=== PATIENT | male | born 1940 | race Caucasian/White ===

== ENCOUNTER 2016-12-08 11:35 | Emergency (ER) | payer MEDICARE, OTHER ==
[~2016-12-08] VITALS: Ht 162.6 cm; Wt 68.5 kg
[2016-12-08] VITALS (7 sets, daily range): BP systolic 140–148; BP diastolic 58–60; PULSE 63–97; RESP 16–18; TEMP 97.9–98.3; O2SAT 95–100
[~2016-12-08 11:35] MED LIST: 1-ME1LIQ PO; ADVAI500I PO; ASPI81TA82 PO; ATEN-100 PO; ATOR40TA PO; EZET10 PO; FLUO-1 PO; LIAL1.2T PO; NITR0.4S SL; PROT40TA PO
[2016-12-08] MEDS ORDERED: ADVA500A INH (11:57)
[2016-12-08] MEDS ORDERED: IPRAAER INH (11:57)
[2016-12-08] MEDS ORDERED: LIAL1.2T PO (11:57)
[2016-12-08] MEDS ORDERED: ASPI-516 CHEW (11:57)
[2016-12-08] MEDS ORDERED: LISI10TA3 PO (11:57)
[2016-12-08] MEDS ORDERED: ATOR20TA15 PO (11:57)
[2016-12-08] MEDS ORDERED: [UNRECOGNIZED DRUG - CODE] PO (11:57)
[2016-12-08] MEDS ORDERED: EZET10 PO (11:57)
[2016-12-08] MEDS ORDERED: FLUO40CA PO (11:57)
--- NOTE | 2016-12-08 12:10 | PD ---
HPI Chief Complaint: Foreign Body Time Seen by Provider: 11:57 Travel History International Travel<30 days: No Contact w/Intl Traveler<30days: No Traveled to known affect area: No History of Present Illness HPI patient is a 68-year-old male having indigestion symptoms for the past few days but went out for a steak dinner last night with his and feels as though a piece of steak immediately got stuck in his throat was unable to tolerate any by mouth since then. Patient states anything he eats gets stuck in his throat and then immediately comes right back up. He states that he was not able to tolerate any further ingestion of the steak last night, he states he tried some cranberry juice this morning and it came right back up and this prompted him to come in and be seen. He states this is never happened before. States he used to get a colonoscopy and endoscopy every 5 years but hasn't seen his GI doctor in 6 years because he moved to [place]. Denies any chest pain shortness of breath abdominal pain. Denies any nausea. Symptoms are moderate, constant, context as above and associated signs symptoms as above. PFSH Past Medical History Depression: Yes Cardiovascular Problems: Yes (HTN, CHOL) High Cholesterol: Yes COPD: Yes Coronary Artery Disease: Yes (STENTS X2) Diabetes: No Diminished Hearing: No Diverticulitis: Yes Gastrointestinal Disorders: Yes (COLITIS) GERD: Yes Hypertension: Yes Immunizations Current: Yes Ulcer: Yes (ULCERATIVE COLITIS) Past Surgical History Coronary Stent: Yes Other Surgery: Yes (ANGIOPLASTY BI LAT LEGS) Social History Alcohol Use: Yes (RARE) Tobacco Use: No Substance Use: No Allergies-Medications (Allergen,Severity, Reaction): Coded Allergies: Sulfa (Sulfonamide Antibiotics) (Unverified Allergy, Intermediate, "DOESN' T REMEMBER", 12/08/16) Reported Meds & Prescriptions Reported Meds & Active Scripts Active Reported Aspirin 81 Mg Chew 81 Mg CHEW DAILY Advair Diskus Inh (Fluticasone-Salmeterol Inh) 500-50 Mcg/Blist Aer 1 Puff INH BID Rinse mouth after use. Lisinopril 10 Mg Tab 10 Mg PO DAILY Fluoxetine (Fluoxetine HCl) 40 Mg Cap 40 Cap PO DAILY Combivent Respimat Inh (Ipratropium-Albuterol Inh) 20-100 Residential/Act Aero 1 Puff INH QID Eprosartan (Eprosartan Mesylate) 600 Mg Tab 1 Tab PO DAILY Atorvastatin (Atorvastatin Calcium) 20 Mg Tab 20 Mg PO HS Zetia (Ezetimibe) 10 Mg Tab 10 Mg PO DAILY Lialda (Mesalamine) 1.2 Gm Tabdr 1.2 Gm PO DAILY Take with a meal. Review of Systems Except as stated in HPI: all other systems reviewed are Neg Physical Exam Narrative GENERAL: Well-developed well-nourished, elderly male in no apparent distress. He is tolerating his own secretions. He was given a cup of water to drink and this was regurgitated.. SKIN: Focused skin assessment warm/dry. HEAD: Atraumatic. Normocephalic. EYES: Pupils equal and round. No scleral icterus. No injection or drainage. ENT: No nasal bleeding or discharge. Mucous membranes pink and moist. NECK: Trachea midline. No JVD. CARDIOVASCULAR: Regular rate and rhythm. No murmur appreciated. RESPIRATORY: No accessory muscle use. Clear to auscultation. Breath sounds equal bilaterally. GASTROINTESTINAL: Abdomen soft, non-tender, nondistended. Hepatic and splenic margins not palpable. MUSCULOSKELETAL: No obvious deformities. No clubbing. No cyanosis. No edema. NEUROLOGICAL: Awake and alert. No obvious cranial nerve deficits. Motor grossly within normal limits. Normal speech. PSYCHIATRIC: Appropriate mood and affect; insight and judgment normal. Data Data Last Documented VS Vital Signs Date Time Temp Pulse Resp B/P (MAP) Pulse Ox O2 Delivery O2 Flow Rate FiO2 12/08/16 18:15 80 16 148/58 (88) 100 12/08/16 17:30 98.3 Room Air Orders Orders Basic Metabolic Panel (Bmp) (12/08/16 12:05) Complete Blood Count With Diff (12/08/16 12:05) Iv Access Insert/Monitor (12/08/16 12:05) Ecg Monitoring (12/08/16 12:05) Oximetry (12/08/16 12:05) Sodium Chloride 0.9% Flush (Ns Flush) (12/08/16 12:15) Dicyclomine Inj (Bentyl Inj) (12/08/16 12:15) Glucagon Inj (Glucagon Inj) (12/08/16 12:15) Ondansetron Inj (Zofran Inj) (12/08/16 12:15) Glucagon Inj (Glucagon Inj) (12/08/16 13:00) Diet Npo Except Meds (12/08/16 Lunch) Consent (12/08/16 13:39) Electrocardiogram (12/08/16 ) Lactated Ringer's 1000 Ml Inj (Lr 1000 M (12/08/16 15:30) Sodium Chlorid 0.9% 500 Ml Inj (Ns 500 M (12/08/16 15:30) Metoprolol Tartrate (Lopressor) (12/08/16 15:30) Povidone Iod 5% Antisepsis Kit (Betadine (12/08/16 15:30) Chlorhexidine 2% Cloth (Chlorhexidine 2% (12/08/16 15:30) Insulin Human Regular Inj (Novolin R Inj (12/08/16 15:30) Panendo (12/08/16 ) Fentanyl Inj (Fentanyl Inj) (12/08/16 17:02) Propofol 200 Mg/20 Ml Inj (Diprivan 200 (12/08/16 16:45) General/Pacu (12/08/16 ) Class Iii Pacu Ea 30 Min (12/08/16 ) Secondary Rec Up To 2 Hrs (12/08/16 ) Labs Laboratory Tests Test 12/08/16 12:17 White Blood Count 5.6 TH/MM3 Red Blood Count 5.05 MIL/MM3 Hemoglobin 14.4 GM/DL Hematocrit 43.5 % Mean Corpuscular Volume 86.1 FL Mean Corpuscular Hemoglobin 28.6 PG Mean Corpuscular Hemoglobin Concent 33.2 % Red Cell Distribution Width 12.8 % Platelet Count 379 TH/MM3 Mean Platelet Volume 8.5 FL Neutrophils (%) (Auto) 53.3 % Lymphocytes (%) (Auto) 31.0 % Monocytes (%) (Auto) 9.7 % Eosinophils (%) (Auto) 4.6 % Basophils (%) (Auto) 1.4 % Neutrophils # (Auto) 3.0 TH/MM3 Lymphocytes # (Auto) 1.7 TH/MM3 Monocytes # (Auto) 0.5 TH/MM3 Eosinophils # (Auto) 0.3 TH/MM3 Basophils # (Auto) 0.1 TH/MM3 CBC Comment DIFF FINAL Differential Comment Blood Urea Nitrogen 20 MG/DL Creatinine 1.30 MG/DL Random Glucose 90 MG/DL Calcium Level 8.9 MG/DL Sodium Level 140 MEQ/L Potassium Level 4.7 MEQ/L Chloride Level 108 MEQ/L Carbon Dioxide Level 24.3 MEQ/L Anion Gap 8 MEQ/L Estimat Glomerular Filtration Rate 53 ML/MIN MDM Medical Decision Making Medical Screen Exam Complete: Yes Emergency Medical Condition: Yes Differential Diagnosis Esophagitis, esophageal with him, esophageal stricture, food bolus impaction. Narrative Course Patient is a 76-year-old male presents emergency department for signs symptoms fairly classic for least a partial obstruction of his esophagus. Food bolus impaction needs to be considered given history of steak dinner last night. 2 doses of glucagon 1 mg IV with Bentyl and Zofran were given without relief. Patient is able to tolerate his own secretions and the fact that he is not drooling however when he is given sips of water he is able to keep them down for a matter of 5-10 seconds before they come back up. Given the symptomology of discussed with Dr. Mandujano when she agrees for endoscopy at [facility]. Patient will be planned for this about 4:00. Otherwise his electrolytes look well, blood counts are negative. After procedure, the patient can be reassessed by GI for discharge. Thank you Dr. Mandujano for your assistance. Diagnosis Primary Impression: Dysphagia Qualified Codes: R13.10 - Dysphagia, unspecified Condition: Stable Marcos Erwin MD Dec 08, 2016 12:10
[2016-12-08] MEDS ORDERED: DICYCLOMINE HCL 20 MG/2 ML VIAL IM ONE (12:15)
[2016-12-08] MEDS ORDERED: GLUCAGON 1 MG/ML VIAL IV PUSH ONE ×2 (12:15→13:00)
[2016-12-08] MEDS ORDERED: ONDANSETRON HCL 4 MG/2 ML VIAL IV PUSH ONE (12:15)
[2016-12-08] MEDS: SODIUM CHLORIDE 0.9% FLUSH 10 ML FLUSH IV FLUSH PRN ×2 (12:21→12:55)
[2016-12-08 12:23] LABS: BASOPHIL # 0.1 TH/MM3 (0-0.2); BASOPHIL % 1.4 % (0.0-2.0); EOSINOPHIL # 0.3 TH/MM3 (0-0.4); EOSINOPHIL % 4.6 % (0.0-4.0); HEMATOCRIT 43.5 % (39.0-51.0); HEMO FLAGS DIFF FINAL; LYMPHOCYTE # 1.7 TH/MM3 (1.0-4.8); MEAN CELL VOLUME 86.1 FL (80.0-100.0); MEAN CORPUSCULAR HEMOGLOBIN 28.6 PG (27.0-34.0); MEAN CORPUSCULAR HGB CONC 33.2 % (32.0-36.0); MONO % 9.7 % (0.0-8.0); NEUT % 53.3 % (16.0-70.0); PLATELET COUNT 379 TH/MM3 (150-450); RED BLOOD COUNT 5.05 MIL/MM3 (4.50-5.90); RED CELL DISTRIBUTION WIDTH 12.8 % (11.6-17.2); WHITE BLOOD COUNT 5.6 TH/MM3 (4.0-11.0)
[2016-12-08 12:34] LABS: POTASSIUM 4.7 MEQ/L (3.5-5.1)
[2016-12-08 12:35] LABS: BICARBONATE 24.3 MEQ/L (21.0-32.0)
[2016-12-08] MEDS ORDERED: SODIUM CHLORID 0.9% 500 ML IV PRN (15:30)
[2016-12-08] MEDS ORDERED: POVIDONE IODINE 5% (ANTISEPSIS KIT) 4 APPLICATIONS EACH NARE PRN (15:30)
[2016-12-08] MEDS ORDERED: CHLORHEXIDINE GLUCONATE 2 % 1 PACK (2 CLOTHS) TOPICAL PRN (15:30)
[2016-12-08] MEDS ORDERED: INSULIN HUMAN REGULAR 1,000 UNITS/10 ML VIAL SQ PRN (15:30)
[2016-12-08] MEDS ORDERED: LACTATED RINGER'S 1000 ML IV PRN (15:30)
[2016-12-08] MEDS ORDERED: METOPROLOL TARTRATE 25 MG TAB PO PRN (15:30)
[2016-12-08] MEDS ORDERED: PROPOFOL 200 MG/20 ML AMP IV PUSH ONE (16:45)
--- NOTE | 2016-12-08 16:50 | GIPROC ---
[facility] [address] [place] [address], [id number] EGD WITH DILATION PROCEDURE REPORT EXAM DATE: 12/08/2016 PATIENT NAME: Tiago Apodaca MR#: [id number] BIRTHDATE: 1940 ATTENDING: Jessica Mandujano MD ORDER #: [id number] WAREHOUSE HELPER: Heather Allen and La Malik STATUS: outpatient INDICATIONS: The patient is a 76 yr old male here for an EGD with dilation due to dysphagia food bolus impaction PROCEDURE PERFORMED: EGD w/ biopsy EGD w/ dilation of esophagus via guidewire EGD w/ fb removal MEDICATIONS: None and Per Anesthesia. TOPICAL ANESTHETIC: none CONSENT: The patient understands the risks and benefits of the procedure and understands that these risks include, but are not limited to: sedation, allergic reaction, infection, perforation and/or bleeding. Alternative means of evaluation and treatment include, among others: physical exam, x-rays, and/or surgical intervention. The patient elects to proceed with this endoscopic procedure. medical equipment was checked for proper function. Hand hygiene and appropriate measures for infection prevention was taken. After the risks, benefits and alternatives of the procedure were thoroughly explained, Informed consent was verified, confirmed and timeout was successfully executed by the treatment team. The patient was anesthetized with topical anesthesia and the Pentax EG-[id number] endoscope was introduced through the mouth and advanced to the second portion of the duodenum. The instrument was slowly withdrawn as the mucosa was fully examined. Esophagitis distal esophagus-biopsy stricture distal esophagus-s/p dilatation Svary 14 food bolus impaction distal esophagus meat -removal using net , snare and tripong. Dilation was performed at gastroesophageal junction. DILATOR: SIZE(S): RESISTANCE: HEME: APPEARANCE: Dilator: Savary over guidewire Size(s): 14 COMMENT: Retroflexed views revealed a hiatal hernia ADVERSE EVENTS: There were no complications. IMPRESSIONS: 1. Esophagitis distal esophagus-biopsy stricture distal esophagus-s/p dilatation Svary 14 food bolus impaction distal esophagus -removal using net , snare and tripong 2. Retroflexed views revealed a hiatal hernia RECOMMENDATIONS: 1. Await biopsy results. Biopsy results will not be ready for 7-10 days. If you don't hear from us in two weeks, call our office for biopsy results. 2. Anti-reflux regimen 3. Continue PPI 4. Avoid NSAIDS 5. Fu office 2 weeks chew food well cut food in samll pieces REPEAT EXAM: Return 4 weeks EGD with dilatation Jessica Mandujano MD eSigned: Jessica Mandujano MD 12/08/2016 4:50 PM cc: PATIENT NAME: Tiago Apodaca MR#: [id number]
--- NOTE | 2016-12-08 17:39 | MB ---
cc: JESSICA MANDUJANO M.D. DATE OF CONSULTATION: 12/08/2016 REFERRING PHYSICIAN: Dr. Marcos Erwin REASON FOR CONSULTATION: Bolus impaction. HISTORY OF PRESENT ILLNESS 8 Mr. Apodaca is a 68-year-old gentleman with history of esophageal stricture had dinner last night with his family and after that he stated a piece of steak got stuck in his esophagus and he was unable to dislodge it. The patient is unable to swallow saliva or liquid. He did have a similar episodes in the past. He did have previous endoscopies with dilatation, the last time was many years ago. He did have a colonoscopy 5 years ago and he is currently not following with any gastrointestinal physician. He denies any weight loss, melena, hematemesis or hematochezia. PAST MEDICAL HISTORY 1. Depression 2. High blood pressure 3. High cholesterol 4. COPD 5. Coronary artery disease status post stent times two. 6. Diverticulitis. 7. History of colitis 8. Reflux 9. Hypertension. PAST SURGICAL HISTORY Coronary stents angioplasty in both legs. SOCIAL HISTORY: Drinks alcohol, denies any smoking, or drug use. ALLERGIES SULFA MEDICATIONS: 1. Aspirin 2. Advil 3. Lisinopril 4. Fluoxetine 5. Combivent 6. <<1:41>> 7. Atorvastatin 8. Zetia 9. <<1:44>> REVIEW OF SYSTEMS IN GENERAL: He denies any fever or chills, weight loss or weight gain. ENT: No alteration in baseline hearing or visual acuity. PULMONARY: He denies any chest pain, shortness of breath. GASTROINTESTINAL: As above. GENITOURINARY: denies dysuria, hematuria. HEMATOLOGIC: No history of anemia or bleeding disorder. SKIN: No alteration in baseline skin lesion. NEUROLOGIC: No history of TIA or CVA kind of symptoms. PHYSICAL EXAMINATION: IN GENERAL: On clinical exam he is sitting comfortably in bed in no acute distress. Edentulous. VITAL SIGNS: Temperature is 98.1, pulse 83, respirations 16, blood pressure 150/62 saturation 97. HEAD, EYES, EARS, NOSE, AND THROAT: Pupils equal, round, reactive to light and accommodation. NECK: No jugular venous distention. No lymphadenopathy. CHEST: Clear to auscultation on palpitation. CARDIOVASCULAR SYSTEM: S1, S2, No murmur. ABDOMEN: Abdomen is soft, nontender. Bowel sounds are present. CENTRAL NERVOUS SYSTEM: Awake, alert, oriented x3. No focal signs identified. LABORATORY FINDINGS: CBC normal. His BMP normal. RADIOLGOIC: No imaging available. IMPRESSION Mr. Apodaac is a very pleasant 76-year-old gentleman with a history of esophageal stricture, who came to emergency room with symptoms of esophageal obstruction secondary to foreign body RECOMMENDATIONS: recommendation of endoscopy with dilatation foreign body removal will be scheduled, the risks and benefits were discussed with the patient. Further recommendation will depend on the patient's clinical status and the above results. I would like to thank Dr. Mcdermott for referring him to our office for consultation. Jessica Mandujano MD BSB/ /5:08 PM /5:25 PM
--- NOTE | 2016-12-08 18:46 | EKG ---
Date Performed: 12/08/2016 Time Performed: 14:48:16 PTAGE: 76 years EKG: Sinus rhythm WITH FREQUENT VENTRICULAR PREMATURE COMPLEXES IN A BIGEMINAL PATTERN ABNORMAL RHYTHM ECG NO PREVIOUS TRACING DOCTOR: Sammy Pryor Interpretating Date/Time 12/08/2016 18:44:44
== END 2016-12-08 18:15 | disposition home or self-care (01) ==
LOC: PHED 11:35
DX: R13.10 Dysphagia, unspecified (principal); K20.9 Esophagitis, unspecified; K22.2 Esophageal obstruction; R94.31 Abnormal electrocardiogram [ECG] [EKG]; I10 Essential (primary) hypertension; J44.9 Chronic obstructive pulmonary disease, unspecified; X58.XXXA Exposure to other specified factors, initial encounter
CPT/HCPCS: 00740; 43239; 43247; 43248; 80048; 85025; 88305; 93005; 96372; 96374; 96375; 99285; C1769; J0500; J1610; J2405; J3010; 88304

== ENCOUNTER 2016-12-14 09:37 | Day surgery (SDC) | payer MEDICARE, OTHER ==
[~2016-12-14] VITALS: Ht 162.6 cm; Wt 69.9 kg
[~2016-12-14 09:37] MED LIST changes: -1-ME1LIQ PO; +ADVA500A INH; -ADVAI500I PO; +ASPI81CH CHEW; -ASPI81TA82 PO; -ATEN-100 PO; +ATOR20TA15 PO; -ATOR40TA PO; -EZET10 PO; -FLUO-1 PO; +FLUO40CA PO; +IPRAAER INH; +LISI10TA3 PO; -NITR0.4S SL; -PROT40TA PO; +ZETI10TA5 PO; +[UNRECOGNIZED DRUG - CODE] PO
[2016-12-14] MEDS ORDERED: IOHEXOL 350 MG/ML 50 ML BTL (for Cath Lab) OTHER ONE (09:38)
[2016-12-14] MEDS ORDERED: SODIUM CHLOR 0.9% 1000 ML INJ 1,000 ML IV SCH (10:30)
[2016-12-14] MEDS ORDERED: SODIUM CHLORIDE FLUSH PRN IV FLUSH (10:30)
[2016-12-14] MEDS ORDERED: PANT40TA3 PO (10:47)
[2016-12-14] MEDS ORDERED: NITR0.4S SL (10:47)
[2016-12-14 10:49] VITALS: BP 127/62; PULSE 33; RESP 18; TEMP 98; O2SAT 97
[2016-12-14 11:01] LABS: AUTOMATED NEUTROPHIL # 2.8 TH/MM3 (1.8-7.7); BASOPHIL # 0.1 TH/MM3 (0-0.2); BASOPHIL % 2.4 % (0.0-2.0); EOSINOPHIL # 0.4 TH/MM3 (0-0.4); EOSINOPHIL % 6.8 % (0.0-4.0); HEMATOCRIT 41.4 % (39.0-51.0); HEMO FLAGS DIFF FINAL; LYMPH % 29.3 % (9.0-44.0); LYMPHOCYTE # 1.6 TH/MM3 (1.0-4.8); MEAN CELL VOLUME 88.5 FL (80.0-100.0); MEAN CORPUSCULAR HEMOGLOBIN 29.5 PG (27.0-34.0); MEAN CORPUSCULAR HGB CONC 33.3 % (32.0-36.0); MONO % 10.3 % (0.0-8.0); NEUT % 51.2 % (16.0-70.0); PLATELET COUNT 279 TH/MM3 (150-450); RED BLOOD COUNT 4.67 MIL/MM3 (4.50-5.90); RED CELL DISTRIBUTION WIDTH 13.8 % (11.6-17.2); WHITE BLOOD COUNT 5.4 TH/MM3 (4.0-11.0)
[2016-12-14 11:04] LABS: PROTHROMBIN TIME - PATIENT 10.9 SEC (9.8-11.6)
[2016-12-14 11:28] LABS: BICARBONATE 26.7 MEQ/L (21.0-32.0); POTASSIUM 4.3 MEQ/L (3.5-5.1)
[2016-12-14] MEDS ORDERED: HEPARIN-NS/PF INJ 1,000 ML ONE (12:18)
[2016-12-14] MEDS ORDERED: MIDAZOLAM HCL 2 MG/2 ML VIAL ONE (12:19)
--- NOTE | 2016-12-14 13:58 | EKG ---
Date Performed: 12/14/2016 Time Performed: 10:47:22 PTAGE: 76 years EKG: Sinus rhythm with frequent PVCs. Abnormal ECG PREVIOUS TRACING : 12/08/2016 14.48 DOCTOR: Guerrero Person Interpretating Date/Time 12/14/2016 13:54:42
[2016-12-14] MEDS ORDERED: ATROPINE SULFATE 1 MG/ML VIAL IV PUSH PRN (15:00)
[2016-12-14] MEDS ORDERED: oxyCODONE/ACETAMINOPHEN 5 MG/325 MG TAB PO PRN ×2 (15:00)
[2016-12-14] MEDS ORDERED: MISC INFORMATION XX ONE (15:00)
[2016-12-14] MEDS ORDERED: ONDANSETRON HCL 4 MG/2 ML VIAL IV PUSH PRN (15:00)
[2016-12-14] MEDS ORDERED: SODIUM CHLOR 0.9% 250 ML INJ 250 ML IV PRN (15:00)
--- NOTE | 2016-12-14 16:25 | MA ---
cc: SARKIS GAVIN DO DATE 12/14/2016 Peripheral angiogram PROCEDURE Right lower extremity angiogram, left lower extremity angiogram, moderate sedation 20 minutes, catheter advanced to the left common femoral artery. PRE PROCEDURE DIAGNOSIS History of PAD, claudication, possible left lower extremity rest pain. POST PROCEDURE DIAGNOSIS Mild PAD. MEDICATIONS 1. Versed 0.5 milligrams. 2. Fentanyl 25 micrograms. CONTRAST USED 25 cc. FLUOROSCOPY 2.4 minutes. ANESTHESIA Moderate sedation 28 minutes. ESTIMATED BLOOD LOSS 10 cc. PROCEDURAL SUMMARY Tiago Apodaca is a pleasant 76-year-old male who sees by partner Dr. Cohen in the office and there was concern for lower extremity pain, specifically having pain at night where he has to hang his left leg off the bed for it to feel better. ABIs were done showing 0.9 bilaterally but symptoms appeared worse than this. Because of this he was recommended bilateral lower extremity angiograms. Risks, benefits and alternatives were explained to him and he consented as such. He was brought to the lab and prepped in the usual sterile fashion. The right femoral artery was accessed using a modified Seldinger technique with placement of a 5 English sheath. This was easily aspirated and flushed. Runoff was done of the right lower extremity to the distal portion because of the difficulty of determining vessels in the lower extremity into the foot, repeat angiogram was done with DSA. Afterwards an IM catheter was advanced to the descending aorta and pulled back the patient to sit on the frantz of the aorta. Angiogram of the left iliac was done. A Glidewire was then advanced into the SFA and the IM catheter was exchanged for a glide catheter. This was placed into the left EN[employer]EVEL [employer]INEER and used for angiography of the left lower extremity. Whitehouse catheter was then removed. 5 English sheath was removed and pressure was held for hemostasis. The patient left the catheterization lab cardiovascular stable. FINDINGS Right lower extremity. Right iliac with mild disease of 20-30%. Otherwise no significant disease. SFA and profunda are both patent. SFA has mild luminal irregularities but no significant disease through the popliteal vessel. Distal to this the vessel trifurcates into a standard AT, PT and peroneal artery. Distally the PT is a large vessel and supplies a large area of the foot. It appears that the peroneal comes down and supplies part of the anterior part of the foot. The ___ appears to taper off distally. Left lower extremity. Normal size iliac with adequate flow. As the left lower extremity was the limb of concern it was done with multiple shots and DSA. Common femoral artery, superficial femoral artery and profunda are all patent. SFA appears to have no significant disease through to the popliteal vessel. Distal at the trifurcation the artery appears to take a standard pattern of AT, PT and peroneal. Distally it appears that the patient has three vessel runoff to the left lower extremity. IMPRESSIONS 1. Mild PAD. 2. Non arterial cause of leg pain. RECOMMENDATIONS 1. Tiago Apodaca appears to have mild peripheral arterial disease with no significant lesions to be intervened on. 2. He will be recommended continuing medical therapy and increasing his overall exercise. 3. He will be referred back to Dr. Cohen for his cardiovascular issues. Thank you for allowing me to see Tiago Apodaca. If there are any questions please do not hesitate to call. Sarkis Gavin DO VGP/KK /3:21 PM /3:34 PM
[2016-12-14] MEDS ORDERED: SODIUM CHLORIDE FLUSH BID IV FLUSH SCH (21:00)
== END 2016-12-14 17:30 | disposition home or self-care (01) ==
LOC: HDOC 09:37 → HDIC 09:37 → HDOC 17:30
PROVIDERS: ATTEND Nuclear Medicine Nuclear Cardiology
DX: I73.9 Peripheral vascular disease, unspecified (principal); I10 Essential (primary) hypertension; J44.9 Chronic obstructive pulmonary disease, unspecified
CPT/HCPCS: 36246; 75716; 80048; 85025; 85610; 93005; C1769; C1887; C1893; J1644; J2250; J3010; Q9967